=== PATIENT | male | born 1975 | race Caucasian/White ===

== ENCOUNTER → 2016-05-05 | Outpatient (CLI) | payer OTHER ==
[~2016-05-05] MED LIST: COLACE100 MG PO; LOVENOX 4040 MG/0.4 SUB-Q; MILK OF MA400 MG/5 M PO; MIRALAX17 GM PO; MOTRIN800 MG PO; NEURONTIN800 MG PO; NORCO 5-325 TA1 EACH PO; OXYCONTIN EXTEN20 MG PO; PERCOCET 5-3251 EACH PO; PROTONIX40 MG PO; TYLENOL EXTRA500 MG PO; VALIUM5 MG PO; VIGAMOX (MOX3 ML/BOT OPHTH
== END | disposition disaster alternative care site (69) ==
LOC: GRAD 12:15
DX: Z51.89 Encounter for other specified aftercare (principal); S82.302D Unspecified fracture of lower end of left tibia, subsequent encounter for closed fracture with routine healing; S82.832D Other fracture of upper and lower end of left fibula, subsequent encounter for closed fracture with routine healing; S82.831D Other fracture of upper and lower end of right fibula, subsequent encounter for closed fracture with routine healing; X58.XXXD Exposure to other specified factors, subsequent encounter

== ENCOUNTER → 2016-05-06 | Day surgery (SDC) | payer OTHER ==
[~2016-05-06] VITALS: Ht 180.3 cm; Wt 82.3 kg
--- NOTE | ~2016-05-06 | OR ---
PATIENT'S NAME: KAELA MCKEON [facility] AGE: 40 Y [address] ROOM: [place] [address] LOCATION: [facility] [place] ADMIT DATE: 05/06/2016 OR/Procedure Report DISCHARGE DATE: FAMILY PHYSICIAN: Fernando Holder MD ATTENDING PHYSICIAN: Yoandy Hebert SURGEON: Yoandy Hebert MD CATERING ATTENDANT: DATE OF PROCEDURE: 05/06/2016 DIAGNOSES: 1. Crushing injury, left leg. 2. Comminuted unstable tibiofibular shaft fractures. 3. Trimalleolar ankle fracture. 4. Delayed unions. PROCEDURES PERFORMED: 1. Removal of syndesmotic screw, left ankle. 2. Removal of proximal locking screws from right tibial nail. ANESTHESIA: Local and MAC. INDICATION: Mr. Maurice crushing injury to left leg with comminuted tib-fib fracture was very unstable and also has comminuted trimalleolar ankle fracture. Open reduction and internal fixation now 3 months status post injury. Significant healing still required. At this time, dynamization of the nail by removal of proximal locking screw and removal of syndesmotic screw is indicated. Risks, benefits, and alternatives have been discussed. DESCRIPTION OF PROCEDURE: Mr. Mckeon was taken to the operating room. 900 mg of clindamycin intravenously. MAC anesthesia. Placed on the operating room table in a supine position. Left leg prepared with DuraPrep, draped sterilely. Fluoroscope was used to identify the 2 proximal tibial locking screws and also the syndesmotic screws. 0.25% Marcaine with epinephrine was infused over each entry site. A 5 mm incision was made over each screw, and with the fluoroscope, the screws were easily removed. They were saved for the patient. Incisions were closed with Dermabond. Xeroform, gauze, and Anastacio wraps placed. The procedure was done without complication. ESTIMATED BLOOD LOSS FROM THE PROCEDURE: Nil. FLUID REPLACEMENT: Crystalloids. SPECIMENS: None. The screws were saved for the patient. PLAN: Discharged to home. Regular diet. Activity: Weight bear as PATIENT'S NAME: KAELA MCKEON [facility] AGE: 40 Y [address] ROOM: [place] [address] LOCATION: [facility] [place] ADMIT DATE: 05/06/2016 OR/Procedure Report DISCHARGE DATE: FAMILY PHYSICIAN: Fernando Holder MD ATTENDING PHYSICIAN: Yoandy Hebert tolerates, but wear his fracture boot. He will continue his Neurontin, Tylenol, and Hutchins as needed. He will follow up with Dr. Hebert in approximately one month. YOANDY HEBERT MD DPM/neal /[id number] d: 05/06/16 1359 t: 05/07/16 1212, OPERATIVE SUMMARY
== END | disposition disaster alternative care site (69) ==
LOC: GPOC 05-05 16:00 → GSDC 07:41 → GPOC 16:00
PROC: 0SPG04Z Removal of Internal Fixation Device from Left Ankle Joint, Open Approach (ICD-10-PCS; principal; 2016-05-06)
DX: S82.852G Displaced trimalleolar fracture of left lower leg, subsequent encounter for closed fracture with delayed healing (principal); Z87.891 Personal history of nicotine dependence; Z88.1 Allergy status to other antibiotic agents; Z98.890 Other specified postprocedural states
CPT/HCPCS: J1885; J2001; J3010; J7120

== ENCOUNTER → 2016-06-09 | Outpatient (CLI) | payer OTHER | END | disposition disaster alternative care site (69) | LOC: GRAD 12:04 | DX: S82.302D Unspecified fracture of lower end of left tibia, subsequent encounter for closed fracture with routine healing (principal); S82.832D Other fracture of upper and lower end of left fibula, subsequent encounter for closed fracture with routine healing; X58.XXXD Exposure to other specified factors, subsequent encounter ==

== ENCOUNTER → 2016-09-29 | Outpatient (CLI) | payer OTHER | END | disposition disaster alternative care site (69) | LOC: GRAD 15:45 | DX: S82.892D Other fracture of left lower leg, subsequent encounter for closed fracture with routine healing (principal); S82.302D Unspecified fracture of lower end of left tibia, subsequent encounter for closed fracture with routine healing; S82.832D Other fracture of upper and lower end of left fibula, subsequent encounter for closed fracture with routine healing; X58.XXXD Exposure to other specified factors, subsequent encounter ==